=== PATIENT | male | born 1960 | race Caucasian/White ===

== ENCOUNTER 2018-01-11 09:58 | Emergency (ER) | payer OTHER ==
[~2018-01-11] VITALS: Ht 177.8 cm; Wt 61.2 kg
== END 2018-01-11 12:20 | disposition home or self-care (01) ==
LOC: ER 09:58
DX: S61.210A Laceration without foreign body of right index finger without damage to nail, initial encounter (principal); S61.212A Laceration without foreign body of right middle finger without damage to nail, initial encounter; W29.8XXA Contact with other powered hand tools and household machinery, initial encounter
CPT/HCPCS: 12002; 73130; 90471; 90714; 99283

== ENCOUNTER 2018-01-19 10:14 | Emergency (ER) | payer OTHER ==
[~2018-01-19] VITALS: Ht 177.8 cm; Wt 63.5 kg
== END 2018-01-19 11:05 | disposition home or self-care (01) ==
LOC: ER 10:14
DX: S61.210D Laceration without foreign body of right index finger without damage to nail, subsequent encounter (principal); S61.212D Laceration without foreign body of right middle finger without damage to nail, subsequent encounter; W29.8XXD Contact with other powered hand tools and household machinery, subsequent encounter
CPT/HCPCS: 99281

== ENCOUNTER 2021-01-07 18:40 | Emergency (ER) | payer OTHER ==
[~2021-01-07] VITALS: Ht 177.8 cm; Wt 63.5 kg
[2021-01-07] MEDS ORDERED: IBUP800 PO (20:38)
== END 2021-01-07 21:00 | disposition home or self-care (01) ==
LOC: ER 18:40
DX: S80.211A Abrasion, right knee, initial encounter (principal); S70.211A Abrasion, right hip, initial encounter; S40.812A Abrasion of left upper arm, initial encounter; S40.811A Abrasion of right upper arm, initial encounter; M54.2 Cervicalgia; T14.8XXA Other injury of unspecified body region, initial encounter; V23.4XXA Motorcycle driver injured in collision with car, pick-up truck or van in traffic accident, initial encounter; Y92.410 Unspecified street and highway as the place of occurrence of the external cause
CPT/HCPCS: 36415; 72040; 73090; 73502; 73562-RT; 96374; 99284-25; J1885; L0160

== ENCOUNTER 2024-12-23 07:56 | Day surgery (SDC) | payer OTHER ==
[~2024-12-23 07:56] MED LIST: IBUP800 PO
== END 2024-12-23 23:18 | disposition home or self-care (01) ==
LOC: CT 07:56
DX: R07.9 Chest pain, unspecified (principal); R00.2 Palpitations; Z87.891 Personal history of nicotine dependence
CPT/HCPCS: 75574; 93246; Q9967

== ENCOUNTER 2025-07-07 09:06 | Day surgery (SDC) | payer OTHER ==
[~2025-07-07] VITALS: Ht 177.8 cm; Wt 65.4 kg
[~2025-07-07 09:06] MED LIST changes: +ATOR40TA PO; +Aspir 8181 MG PO; +CELE200 PO; +DOXA4 PO; +SILD50TA PO
[2025-07-07 11:30] VITALS: BP 113/84
== END 2025-07-07 11:25 | disposition home or self-care (01) ==
LOC: ORSCSDS 09:06
PROVIDERS: Surgery
PROC: 0DBK8ZX Excision of Ascending Colon, Via Natural or Artificial Opening Endoscopic, Diagnostic (ICD-10-PCS; principal; 2025-07-07 10:30)
DX: Z12.11 Encounter for screening for malignant neoplasm of colon (principal); D12.2 Benign neoplasm of ascending colon; I25.10 Atherosclerotic heart disease of native coronary artery without angina pectoris; Z79.899 Other long term (current) drug therapy; Z79.82 Long term (current) use of aspirin; Z87.891 Personal history of nicotine dependence
CPT/HCPCS: 88305; J2704; J7120